=== PATIENT | male | born 1965 | race Caucasian/White ===

== ENCOUNTER 2017-07-26 08:52 | Emergency (ER) | payer BC, SELFPAY ==
[2017-07-26 08:54] VITALS: BP 179/120; PULSE 90; RESP 18; O2SAT 98; BMI 29.7
--- NOTE | 2017-07-26 09:03 | HMH.EDNEU ---
ED Disposition Clinical Impression: Neurological complaint Disposition: Home, Self-Care Condition on Discharge: Good Instructions: High Blood Pressure Additional Instructions: Continue your blood pressure medication as prescribed. Recheck blood pressure at your family doctor's office in 1-4 days. See her rig manager next available appointment also for checkup. Low-dose ibuprofen or Tylenol as needed for musculoskeletal pain of left arm. Referrals: Karen Malagon [Primary Care Provider] - - Critical Care Critical Care Time: No Attestation: On , the high probability of a clinically significant, sudden or life threatening deterioration of the following system(s) required my full and direct attention, intervention and personal management. The time I documented below is in addition to time spent performing reported procedures but includes the following listed in this critical care notation. Medical Decision Making Vital Signs: 07/26/17 08:54 Pulse Rate [Right Radial] 90 Respiratory Rate 18 Blood Pressure [Right Arm] 179/120 Blood Pressure Mean [Right Arm] 139 Blood Pressure Source [Right Arm] Automatic Cuff Blood Pressure Position [Right Arm] Supine 02 Sat by Pulse Oximetry 98 Oxygen Delivery Method Room Air afebrile - Lab Data Lab Results 07/26/17 09:15: WBC 5.2, RBC 5.15, Hgb 16.1, Hct 47.7, MCV 92.7, MCH 31.2, MCHC 33.7, RDW 12.8, Plt Count 223, MPV 7.6, Neut % (Auto) 66.8, Lymph % (Auto) 25.3, [place] % (Auto) 5.9, Eos % (Auto) 1.5, Baso % (Auto) 0.6, Neut # (Auto) 3.5, Lymph # (Auto) 1.3, [place] # (Auto) 0.3, Eos # (Auto) 0.1, Baso # (Auto) 0.0 07/26/17 09:15: Sodium 140, Potassium 3.9, Chloride 104, Carbon Dioxide 27, Anion Gap 12.9, BUN 11, Creatinine 1.18, Estimated Creat Clear 121, Estimated GFR 65, Est GFR ( Amer) 79, Glucose 171 H, Calcium 8.7, Total Bilirubin 0.3, AST 21, ALT 37, Alkaline Phosphatase 86, Total Creatine Kinase 142, CK-MB (CK-2) 0.7, CK-MB (CK-2) Rel Index 0.5, Troponin I < 0.02, Total Protein 6.8, Albumin 3.8, Globulin 3.0, Albumin/Globulin Ratio 1.3 Result diagrams: 07/26/17 09:15 07/26/17 09:15 Orders (Tests/Meds): ORDERS Category Date Time Status Chest XR 2 view (NOT portable) [XR chest 2V] Stat Exams 07/26/17 09:06 Taken - Radiology Data #1 Image(s): Chest Image Reviewed: Yes I reviewed the patient's radiology image Preliminary Findings: Normal/NAD, No Infiltrates Seen, Normal Heart Size - CT Data CT Scan: Head, C-Spine Time Received: 10:[address] Reviewed: Yes: I have reviewed the patient's CT results Preliminary Findings: Normal/NAD Findings Narrative: DJD, with some foraminal narrowing. Negative acute. CT negative acute as well. - ECG Data Tracing #1 Normal sinus rhythm rate of 81 normal axis and intervals. No ectopy. No hypertrophy. Positive wandering baseline noted. - Jovanni Inquiry Pt receiving controlled substance: No Medical Decision Making Narrative: Complaints of discharge. Systolic blood pressure is in the low 140s. Neurologically intact. Neuro HPI - General Stated Complaint: numbness - History of Present Illness HPI Narrative: Patient states that he was referred to the emergency department by his [facility], due to an episode that occurred 2 nights ago, and he experienced 30 seconds of right sided facial numbness and face felt heavy. He denies any headache or syncope. He also had a brief episode of chest pain radiating to the left upper extremity at that time. He has left shoulder and neck pain. 4 to history of chronic issues with his neck and back since serving in [place]. That he did not take his blood pressure medicine over the past 4 days as he was out. Refilled and took 1 dose this morning about 2 hours prior to arrival. Denies any known history of coronary artery disease but has known hypertension. States he dips. Has hyperlipidemia. Family history is negative for TIA or stroke, but
[2017-07-26 09:04] VITALS: BMI 33.7
--- NOTE | 2017-07-26 09:04 | CT_ITS ---
CT head/brain wo con HISTORY: Right arm and facial weakness ITS.REASON: r/o stroke ORDERING PHYSICIAN: Radha Huang MD PATIENT AGE: 52 years COMPARISON: None TECHNIQUE: Axial images obtained without contrast. Brain and bone windows reviewed. FINDINGS: No midline shift, mass effect, intracranial hemorrhage, hydrocephalus, or extra-axial fluid collection is evident. The calvarium has an unremarkable appearance. No mastoid effusion. No sinus air-fluid levels.. IMPRESSION: No acute intracranial finding. There is no evidence of intracranial hemorrhage, focal mass, or acute territorial infarction. A negative CT does not exclude an acute CVA. A follow-up head CT or MRI is recommended if neurological symptoms persist
--- NOTE | 2017-07-26 09:06 | XR_ITS ---
XR chest 2V HISTORY: ITS.REASON: period of lt side weakness 2 days ago ORDERING PHYSICIAN: Radha Huang MD PATIENT AGE: 52 years COMPARISON: 12/30/2012 FINDINGS: The cardiomediastinal silhouette and pulmonary vascularity are within normal limits. The lungs are clear without infiltrates, suspicious nodules, or pleural effusions. No acute bony abnormalities. IMPRESSION: Negative chest, no acute finding
--- NOTE | 2017-07-26 09:07 | ED_ITS ---
ED Disposition Clinical Impression: Neurological complaint Disposition: Home, Self-Care Condition on Discharge: Good Instructions: High Blood Pressure Additional Instructions: Continue your blood pressure medication as prescribed. Recheck blood pressure at your family doctor's office in 1-4 days. See her precision lens centerer and edger next available appointment also for checkup. Low-dose ibuprofen or Tylenol as needed for musculoskeletal pain of left arm. Referrals: Karen Malagon [Primary Care Provider] - - Critical Care Critical Care Time: No Attestation: On , the high probability of a clinically significant, sudden or life threatening deterioration of the following system(s) required my full and direct attention, intervention and personal management. The time I documented below is in addition to time spent performing reported procedures but includes the following listed in this critical care notation. Medical Decision Making Vital Signs: 07/26/17 08:54 Pulse Rate [Right Radial] 90 Respiratory Rate 18 Blood Pressure [Right Arm] 179/120 Blood Pressure Mean [Right Arm] 139 Blood Pressure Source [Right Arm] Automatic Cuff Blood Pressure Position [Right Arm] Supine 02 Sat by Pulse Oximetry 98 Oxygen Delivery Method Room Air afebrile - Lab Data Lab Results 07/26/17 09:15: WBC 5.2, RBC 5.15, Hgb 16.1, Hct 47.7, MCV 92.7, MCH 31.2, MCHC 33.7, RDW 12.8, Plt Count 223, MPV 7.6, Neut % (Auto) 66.8, Lymph % (Auto) 25.3 , [place] % (Auto) 5.9, Eos % (Auto) 1.5, Baso % (Auto) 0.6, Neut # (Auto) 3.5, Lymph # (Auto) 1.3, [place] # (Auto) 0.3, Eos # (Auto) 0.1, Baso # (Auto) 0.0 07/26/17 09:15: Sodium 140, Potassium 3.9, Chloride 104, Carbon Dioxide 27, Anion Gap 12.9, BUN 11, Creatinine 1.18, Estimated Creat Clear 121, Estimated GFR 65, Est GFR ( Amer) 79, Glucose 171 H, Calcium 8.7, Total Bilirubin 0.3, AST 21, ALT 37, Alkaline Phosphatase 86, Total Creatine Kinase 142, CK-MB ( CK-2) 0.7, CK-MB (CK-2) Rel Index 0.5, Troponin I < 0.02, Total Protein 6.8, Albumin 3.8, Globulin 3.0, Albumin/Globulin Ratio 1.3 Result diagrams: 07/26/17 09:15 07/26/17 09:15 Orders (Tests/Meds): ORDERS Category Date Time Status Chest XR 2 view (NOT portable) [XR chest 2V] Stat Exams 07/26/17 09:06 Taken - Radiology Data #1 Image(s): Chest Image Reviewed: Yes I reviewed the patient's radiology image Preliminary Findings: Normal/NAD, No Infiltrates Seen, Normal Heart Size - CT Data CT Scan: Head, C-Spine Time Received: 10:[address] Reviewed: Yes: I have reviewed the patient's CT results Preliminary Findings: Normal/NAD Findings Narrative: DJD, with some foraminal narrowing. Negative acute. CT negative acute as well. - ECG Data Tracing #1 Normal sinus rhythm rate of 81 normal axis and intervals. No ectopy. No hypertrophy. Positive wandering baseline noted. - Jovanni Inquiry Pt receiving controlled substance: No Medical Decision Making Narrative: Complaints of discharge. Systolic blood pressure is in the low 140s. Neurologically intact. Neuro HPI - General Stated Complaint: numbness - History of Present Illness HPI Narrative: Patient states that he was referred to the emergency department by his [facility] primary care [facility], due to an episode that occurred 2 nights ago, and he experienced 30 seconds of right sided facial numbness and face felt heavy. He denies any headache or syncope. He
[2017-07-26 09:26] LABS: Basophils % 0.6 % (0.1-2.0); Eosinophils # 0.1 K/mm3 (0.0-0.4); Eosinophils % 1.5 % (0.1-12.0); Hematocrit 47.7 % (42.0-52.0); Hemoglobin 16.1 g/dL (14.1-18.0); Lymphocytes # 1.3 K/mm3 (0.7-4.5); Lymphocytes % 25.3 K/mm3 (10-50); Mean Corpuscular HGB Conc 33.7 g/dL (31.8-35.4); Mean Corpuscular Hemoglobin 31.2 pg (27.0-31.2); Mean Corpuscular Volume 92.7 fl (80-94); Mean Platelet Volume 7.6 fl (7.4-10.4); Monocytes # 0.3 K/mm3 (0.1-1.0); Monocytes % 5.9 % (1.7-9.3); Neutrophils # 3.5 K/mm3 (1.8-7.8); Neutrophils % 66.8 % (37.0-80.0); Platelet Count 223 K/mm3 (142-424); Red Blood Count 5.15 M/mm3 (4.60-6.20); Red Cell Distribution Width 12.8 % (11.5-17.5); White Blood Count 5.2 K/mm3 (4.8-10.8)
--- NOTE | 2017-07-26 09:49 | CT_ITS ---
CT cervical spine wo con INDICATION: Cervical pain, Left-sided weakness, neck pain ITS.REASON: NECK PAIN ORDERING PHYSICIAN: Radha Huang MD PATIENT AGE: 52 years COMPARISON: None TECHNIQUE: Axial images are obtained without contrast. Sagittal and coronal reformatted images are reviewed as well. FINDINGS: There is normal alignment. No fracture or dislocation. C2-C3: Mild right foraminal narrowing from uncovertebral hypertrophy. C3-C4: Mild degenerative disc disease with mild uncovertebral hypertrophy and mild bilateral lateral recess and foraminal narrowing. There is narrowing of the canal at 10 mm. C4-C5: Mild degenerative disc disease with mild uncovertebral hypertrophy with mild to moderate left foraminal narrowing C5-C6: Mild degenerative disc disease. Left-sided foraminal narrowing from mild uncovertebral hypertrophy C6-7: Minimal endplate hypertrophic change with bulging disc. There is narrowing of the canal 10 mm. C7-T1: Unremarkable. There are scattered small lymph nodes in the neck. IMPRESSION: 1. No acute fracture or destructive process. 2. Cervical spondylosis with degenerative disc disease and facet and uncovertebral hypertrophy with foraminal narrowing and narrowing of the canal as described above. Please see above for detail description at each level
[2017-07-26 09:52] LABS: Anion Gap 12.9 mEq/L (5-15); CKMB Relative Index 0.5 U/L (0-4.0); Carbon Dioxide 27 mmol/L (21.0-32.0); Chloride 104 mmol/L (98-107); Creatine Kinase 142 U/L (39-308); Creatine Kinase MB 0.7 mg/ml (0.0-3.6); Potassium 3.9 mmoL/L (3.5-5.1); Sodium 140 mmol/L (136-145); Troponin I < 0.02 ng/ml (0.00-0.06)
[2017-07-26 09:53] LABS: Bilirubin,Total 0.3 mg/dL (0.2-1.0); Blood Urea Nitrogen 11 mg/dL (7-18); Calcium 8.7 mg/dL (8.5-10.1); Creatinine Clearance Estimated 121 mL/min (0-300); Creatinine,Serum 1.18 mg/dL (0.70-1.30); Estimated Glomerular Filt Rate 65 ml/min (>60); GFR (African American) 79 ML/MIN (>60); Glucose 171 mg/dL (74-106)
[2017-07-26 09:54] LABS: Alanine Aminotransferase 37 U/L (12-78); Albumin Level 3.8 gm/dL (3.4-5.0); Albumin/Globulin Ratio 1.3 (1.1-1.8); Alkaline Phosphatase 86 U/L (46-116); Aspartate Amino Transferase 21 U/L (15-37); Total Protein,Serum 6.8 gm/dL (6.4-8.2)
[2017-07-26 10:23] VITALS: BP 146/91; PULSE 60; RESP 16; O2SAT 100
[2017-07-26 11:25] VITALS: BP 160/99; PULSE 78; RESP 20; TEMP 36.9; O2SAT 98
== END 2017-07-26 11:27 | disposition home or self-care (01) ==
PROVIDERS: Emergency Provider Emergency Medicine; Family Provider Family Medicine; PCP Family Medicine
DX: R07.89 Other chest pain (principal); M54.2 Cervicalgia; M25.512 Pain in left shoulder; E78.5 Hyperlipidemia, unspecified
CPT/HCPCS: 70450; 71046; 72125; 80053; 82550; 82553; 84484; 85025; 93005; 93041; 99284

== ENCOUNTER 2021-01-03 12:36 | Emergency (ER) | payer OTHER, SELFPAY ==
[2021-01-03] VITALS (12 sets, daily range): BP systolic 120–129; BP diastolic 72–85; PULSE 90–106; RESP 16–18; TEMP 37.2–37.3; O2SAT 93–98; BMI 30.3
--- NOTE | 2021-01-03 12:50 | HMH.EDGENADL ---
ED Disposition Clinical Impression: Diverticulitis Disposition: Home, Self-Care Condition on Discharge: Fair Instructions: DI for Diverticulitis Additional Instructions: Cipro and Flagyl as prescribed. Percocet and ibuprofen for pain. Follow-up with your primary care doctor within 4-5 days. Call for appointment. Return to the emergency department if worsening pain, fever greater than 100.5 degrees, persistent vomiting. Additional instructions for CONTROLLED SUBSTANCES: You have been prescribed a medication that is a controlled substance. Controlled substances include pain medications known as opiates and sedative nerve medications known as benzodiazepines. Tramadol, fioricet, and gabapentin are also controlled substances. Some common opiates include: Codeine (such as Tylenol #3) Hydrocodone (Vicodin, Lortab, Lorcet, [place]) Oxycodone (Percocet, Percodan, Oxycodone, Oxy IR) Some common benzodiazepines include: Diazepam (Valium) Lorazepam (Ativan) Alprazolam (Xanax) Clonazepam (Klonopin) Oxazepam (Serax) All of these controlled substances are highly addictive and frequently abused. Misuse can and frequently does lead to addiction as well as overdose and . Medication should be stored in a locked cabinet or other secure storage unit. Do not store the medication in a motor vehicle. Short term supplies, 3 days or less, are prescribed because of the highly addictive nature of the medication. Any of the controlled substance medication NOT taken should be disposed of properly and NOT SAVED. The recommended method of disposing of unused medications is: Place the medicines in a sealable plastic bag. If the medicine is a solid, crush it or add water to dissolve it. Add something undesirable (cat litter, coffee grounds, etc.) Dispose of sealed bag in household trash Do not flush or pour unused medicines down a sink or drain. Controlled substances should not be shared, given away or sold. Because of the addictive nature and frequent abuse, these medications are sometimes stolen. These medications should be kept in a safe place where they cannot be stolen. Do not keep them in your car or purse. Lost or stolen prescriptions for controlled substances WILL NOT BE REFILLED in this emergency department, regardless of whether a police report was filed. Prescriptions: Oxycodone HCl/Acetaminophen [Percocet 5/325mg tablet] 1 tab PO Q6HP PRN #10 tab PRN Reason: Moderate To Severe Pain Transmission Status: Sent to [facility] Ibuprofen [Ibuprofen 800mg Tablet] 800 mg PO Q8HP PRN #15 tab PRN Reason: Moderate Pain Transmission Status: Sent to [facility] Ciprofloxacin HCl [Cipro 500mg Tab] 500 mg PO BID #20 tab Transmission Status: Sent to [facility] [place] [Flagyl] 500 mg PO TID #30 tab Transmission Status: Sent to [facility] Referrals: Provider,Referral, MD [Primary Care Provider] - - Critical Care Critical Care Time: No Attestation: On , the high probability of a clinically significant, sudden or life threatening deterioration of the following system(s) required my full and direct attention, intervention and personal management. The time I documented below is in addition to time spent performing reported procedures but includes the following listed in this critical care notation. Medical Decision Making - Jovanni Inquiry Pt receiving controlled substance: Yes Jovanni was queried for this patient: Yes Risks and benefits of using a controlled substance: were discussed with pt by me Vital Signs: 01/03/21 12:45 01/03/21 13:30 01/03/21 13:45 Temperature 99.1 F Temperature Source Oral Pulse Rate 97 H 96 H Pulse Rate [Right] 106 H Respiratory Rate 18 Blood Pressure Blood Pressure [Right Arm] 129/85 Blood Pressure Mean Blood Pressure Mean [Right Arm] 99 02 Sat by Pulse Oximetry 98 97 94 L Oxygen Delivery Method Room Air
--- NOTE | 2021-01-03 13:02 | CT_ITS ---
PROCEDURE: CT ABDOMEN PELVIS W CON CLINICAL INDICATION: lower abdo pain Left lower quadrant pain COMPARISON: No exams were available for comparison TECHNIQUE: IV Contrast: 75ML Isovue 370 Oral Contrast None Axial images obtained with sagittal and coronal reformats. All CT scans at the facility use one or more dose reduction, viz: automated exposure control, ma/kV adjustment per patient size (including targeted exams where dose is matched to indication, i.e. head), or iterative reconstruction technique. FINDINGS: LOWER THORAX: Minimal atelectatic or scarring noted in the lung bases. Coronary artery calcifications are present. ABDOMEN & PELVIS: The liver, spleen, adrenal glands, pancreas, and kidneys have an unremarkable appearance. No renal or ureteral calculi. No hydronephrosis. There is given history of appendectomy. No intestinal obstruction or free air. There is a small umbilical hernia containing fat. There is colonic diverticulosis. There is focal thickening of the colon in the left lower quadrant at the junction of the descending and sigmoid colon. A hyperdense diverticulum is noted at this region. There is stranding of the pericolic fat. These findings are consistent with acute diverticulitis. No abscess or extra colic air is evident. There is mild thickening of the left lateral conal fascia in the left pericolic gutter inferiorly. There is a small amount fluid in the pelvis. The bowel gas pattern is nonspecific with nondistended fluid-filled loops of large and small bowel with a few air-fluid levels. Sclerotic focus is present in the right proximal femur and may be due to a bone island. Small sclerotic focus of the right ilium which could also be due due to a bone island. Degenerative changes lumbar spine. IMPRESSION: Acute diverticulitis in the left lower quadrant at the junction of the descending and sigmoid colon. No evidence of perforation or abscess. Dictated by: Melvin Zayas MD 01/03/2021 13:58 Melvin Zayas MD in [place] 01/03/2021 13:58
[2021-01-03 13:06] LABS: Appearance,Urine CLEAR (Clear); Bilirubin,Urine Negative (Negative); Blood, Urine TRACE-I (Negative); Color,Urine YELLOW (Yellow); Glucose,Urine (UA) Negative (Negative); Ketones,Urine Negative (Negative); Leukocyte Esterase,Urine Negative (Negative); Microscopic, Urine URINE MICROSCOPIC (MICROSCOPIC); Nitrate,Urine Negative (Negative); Protein,Urine 1+ (Negative)
--- NOTE | 2021-01-03 13:15 | PC.NURSE ---
Pt to CT scanner via wheelchair at this time.
[2021-01-03 13:21] LABS: Basophils # 0.1 K/mm3 (0-0.2); Basophils % 0.3 % (0.1-2.0); Eosinophils # 0.2 K/mm3 (0.0-0.4); Eosinophils % 1.2 % (0.1-12.0); Hematocrit 43.4 % (42.0-52.0); Hemoglobin 15.4 g/dL (14.1-18.0); Lymphocytes # 1.5 K/mm3 (0.7-4.5); Lymphocytes % 8.4 % (10-50); Mean Corpuscular HGB Conc 35.4 g/dL (31.8-35.4); Mean Corpuscular Hemoglobin 32.4 pg (27.0-31.2); Mean Corpuscular Volume 91.4 fl (80-94); Monocytes % 5.5 % (1.7-9.3); Neutrophils # 15.2 K/mm3 (1.8-7.8); Neutrophils % 84.6 % (37.0-80.0); Platelet Count 218 K/mm3 (142-424); Red Blood Count 4.75 M/mm3 (4.60-6.20); Red Cell Distribution Width 13.1 % (11.5-17.5)
[2021-01-03 13:23] LABS: Chloride 100 mmol/L (98-107); Sodium 137 mmol/L (136-145)
[2021-01-03 13:26] LABS: Alanine Aminotransferase 19 U/L (12-78); Alkaline Phosphatase 78 U/L (38-126); Aspartate Amino Transferase 27 U/L (17-59); Bilirubin,Total 1.6 mg/dl (0.2-1.3); Blood Urea Nitrogen 17 mg/dl (9-20); Carbon Dioxide 28 mmol/L (22.0-30.0); Creatinine Clearance Estimated 113 mL/min (50-200); Estimated Glomerular Filt Rate 70 ml/min (>60); GFR (African American) 84 ML/MIN (>60); Lipase 35 U/L (23-300)
[2021-01-03 13:27] LABS: Albumin Level 4.6 g/dl (3.5-5.0); Albumin/Globulin Ratio 1.5 (1.1-1.8); Calcium 9.2 mg/dl (8.4-10.2); Globulin 3.1 g/dL (1.3-3.2); Glucose 128 mg/dl (74-100); Total Protein,Serum 7.7 g/dl (6.3-8.2)
[2021-01-03 13:28] LABS: MANUAL DIFFERENTIAL MANUAL DIFFERENTIAL (MANUAL DIFF)
[2021-01-03 14:07] LABS: Lymphocytes % 10 % (10-50); Monocytes % 4 % (2-9); Neutrophils % 86 % (42-76); Total Cells Counted 100
[2021-01-03 14:08] LABS: Platelet Estimate Normal; RBC Morphology Normal
--- NOTE | 2021-01-03 14:16 | PC.NURSE ---
Patient up for discharge but will receive IV antibiotics prior to discharge
== END 2021-01-03 16:06 | disposition home or self-care (01) ==
PROVIDERS: Emergency Provider Emergency Medicine
DX: K57.92 Diverticulitis of intestine, part unspecified, without perforation or abscess without bleeding (principal)
CPT/HCPCS: 74177; 80053; 81001; 83690; 85007; 85025; 96365; 96366; 99283; J1956; Q9967

== ENCOUNTER → 2021-07-17 14:36 | Outpatient (CLI) | payer OTHER, SELFPAY | PROVIDERS: Visit Provider Nurse Practitioner | DX: Z20.822 Contact with and (suspected) exposure to COVID-19 (principal) | CPT/HCPCS: C9803; U0003; U0005 ==

== ENCOUNTER 2021-08-18 19:42 | Inpatient (IN) | payer OTHER, SELFPAY ==
[2021-08-18] VITALS (8 sets, daily range): BP systolic 103–168; BP diastolic 64–118; PULSE 59–105; RESP 15–18; TEMP 36.6–36.7; O2SAT 91–97; BMI 28.8; BMI 30.7
--- NOTE | 2021-08-18 | IR_ITS ---
APPROVED REPORT Patient Location: Emergent Machine Plug Shaper: SUZY Yap RT (R) PROCEDURES Left heart catheterization Left ventriculogram Selective coronary angiogram INDICATION Acute non-ST elevation myocardial infarction Informed consent was obtained prior to the procedure. COMPLICATIONS None Estimated Blood Loss: Less than 10 ML TECHNIQUE One percent lidocaine used to anesthetize the right anterior aspect of the wrist. The right radial artery was accessed via the Seldinger technique. A 6 [place] sheath was placed in the right radial artery. 2.5 mg of verapamil, 800 mcg of nitroglycerin, 1mg Lidocaine and 5000 U Heparin were given through the arterial sheath. The [place] catheter was also used to perform left heart catheterization, left ventriculogram and selective coronary angiogram. At the end of the procedure the sheath was removed good hemostasis was achieved using Traclet band, patient was transferred to the postop holding area in stable condition. ANGIOGRAPHIC RESULTS The left main artery Distal eccentric 70% stenosis The left anterior descending artery Proximal eccentric 90% stenosis with additional mid vessel 80% stenosis and a distal 50% stenosis. A large first diagonal artery has an ostial 50% followed by a 70 to 80% stenosis. The second diagonal artery is a small vessel and subtotally occluded proximally The circumflex artery Is probably codominant and gives rise to a large first obtuse marginal artery which has proximal long 70% stenoses. The true circumflex artery has a mid vessel 80% stenosis The right coronary artery Is dominant with a mid vessel concentric 70 to 80% stenosis. The posterior descending artery is proximally subtotally occluded with the distal vessel filling via [id number] collaterals The [place] ventriculogram reveals Normal 60% The left ventricular end-diastolic pressure 10 mmHg IMPRESSION Severe three-vessel coronary disease as described above Normal ejection fraction Normal left ventricular and SI pressure PLAN 1. Uptitrate beta-blockers to achieve target heart rate in the 60s or 70s. 2. Patient should be started on high intensity statins today 3. Patient has surgical disease and will be referred to [facility] for urgent transfer with planned CABG following clearance of Plavix 300 mg which was given in the emergency department 1 hour ago 4. Start heparin drip 5. I discussed the case with the surgeon at [facility] and plans are currently underway for transfer this evening or in the morning Electronically signed by : Duong Prince MD 08/18/2021 21:50:28
--- NOTE | 2021-08-18 19:40 | ECG_ITS ---
APPROVED REPORT Exam: Resting ECG HR:98 bpm ECG Measurements Heart Rate 98 AXES OK 192 P 57 QRSd 99 QRS 38 QT 350 T 73 QTc 405 Conclusion SINUS RHYTHM POSSIBLE LEFT ATRIAL ENLARGEMENT [-0.1mV P-WAVE IN V1/V2] NONSPECIFIC T-WAVE ABNORMALITY BORDERLINE ECG UNCONFIRMED REPORT Electronically signed by : Radhames Lee MD 08/19/2021 07:35:42
--- NOTE | 2021-08-18 19:44 | XR_ITS ---
PROCEDURE INFORMATION: Exam: XR Chest Exam date and time: 08/18/2021 7:44 PM Age: 56 years old Clinical indication: Pain; Chest pressure; Additional info: Cp TECHNIQUE: Imaging protocol: XR of the chest. Views: 2 views. COMPARISON: CR CXR2V XR chest 2V 07/26/2017 10:12 AM FINDINGS: Lungs: Unremarkable. No consolidation. Pleural spaces: Unremarkable. No pleural effusion. No pneumothorax. Heart/Mediastinum: Unremarkable. No cardiomegaly. Bones/joints: Unremarkable. IMPRESSION: No acute findings.
[2021-08-18 19:58] LABS: Basophils # 0.2 K/mm3 (0-0.2); Basophils % 2.5 % (0.1-2.0); Eosinophils # 0.1 K/mm3 (0.0-0.4); Eosinophils % 1.5 % (0.1-12.0); Hematocrit 48.9 % (42.0-52.0); Hemoglobin 16.3 g/dL (14.1-18.0); Lymphocytes % 26.4 % (10-50); Mean Corpuscular HGB Conc 33.4 g/dL (31.8-35.4); Mean Corpuscular Hemoglobin 31.7 pg (27.0-31.2); Mean Platelet Volume 8.1 fl (7.4-10.4); Monocytes # 0.5 K/mm3 (0.1-1.0); Monocytes % 6.8 % (1.7-9.3); Neutrophils # 4.7 K/mm3 (1.8-7.8); Neutrophils % 62.8 % (37.0-80.0); Platelet Count 243 K/mm3 (142-424); Red Blood Count 5.15 M/mm3 (4.60-6.20); Red Cell Distribution Width 13.5 % (11.5-17.5); White Blood Count 7.4 K/mm3 (4.8-10.8)
[2021-08-18 20:11] LABS: Anion Gap 12.1 mEq/L (5-15); Blood Urea Nitrogen 17 mg/dl (9-20); Calcium 9.1 mg/dl (8.4-10.2); Carbon Dioxide 28 mmol/L (22.0-30.0); Chloride 104 mmol/L (98-107); Creatinine Clearance Estimated 117 mL/min (50-200); Estimated Glomerular Filt Rate 78 ml/min (>60); GFR (African American) 94 ML/MIN (>60); Glucose 161 mg/dl (74-100); Potassium 4.1 mmoL/L (3.5-5.1); Sodium 140 mmol/L (136-145)
--- NOTE | 2021-08-18 20:11 | HMH.EDCP ---
ED Disposition Clinical Impression: Unstable angina pectoris, Non-ST elevated myocardial infarction (non-STEMI) Disposition: Admitted As Inpatient Condition on Discharge: Serious - Critical Care Critical Care Time: No Attestation: On 08/18/21, the high probability of a clinically significant, sudden or life threatening deterioration of the following system(s) required my full and direct attention, intervention and personal management. The time I documented below is in addition to time spent performing reported procedures but includes the following listed in this critical care notation. Medical Decision Making - Medical Records Medical records reviewed: Yes: I reviewed the patient's medical records. - Jovanni Inquiry Pt receiving controlled substance: No Vital Signs: 08/18/21 19:43 Temperature 98.1 F Temperature Source Oral Pulse Rate [Left] 102 H Respiratory Rate 18 Blood Pressure [Right Arm] 168/110 H Blood Pressure Mean [Right Arm] 129 02 Sat by Pulse Oximetry 97 Oxygen Delivery Method Room Air - Lab Data Lab results reviewed: Yes: I reviewed the patient's lab results. Lab Results 08/18/21 19:43: WBC 7.4, RBC 5.15, Hgb 16.3, Hct 48.9, MCV 95.0 H, MCH 31.7 H, MCHC 33.4, RDW 13.5, Plt Count 243, MPV 8.1, Neut % (Auto) 62.8, Lymph % (Auto) 26.4, [place] % (Auto) 6.8, Eos % (Auto) 1.5, Baso % (Auto) 2.5 H, Neut # (Auto) 4.7, Lymph # (Auto) 2.0, [place] # (Auto) 0.5, Eos # (Auto) 0.1, Baso # (Auto) 0.2 08/18/21 19:43: Sodium 140, Potassium 4.1, Chloride 104, Carbon Dioxide 28, Anion Gap 12.1, BUN 17, Creatinine 1.00, Estimated Creat Clear 117, Estimated GFR 78, Est GFR ( Amer) 94, Glucose 161 H, Calcium 9.1, Troponin I 0.18 H 08/18/21 20:45: Urine Color Yellow, Urine Appearance Clear, Urine pH 6.5, Ur Specific [place] 1.015, Urine Protein Trace, Urine Glucose (UA) 1+, Urine Ketones Negative, Urine Blood Negative, Urine Nitrate Negative, Urine Bilirubin Negative, Urine Urobilinogen 0.2, Ur Leukocyte Esterase Negative Result diagrams: 08/18/21 19:43 08/18/21 19:43 Orders (Tests/Meds): ED MEDICATIONS Generic Name Dose Route Start Last Admin Trade Name Freq PRN Reason Stop Dose Admin Diphenhydramine HCl 50 mg 08/18/21 20:51 Diphenhydramine 50mg/Ml Vial IV 08/18/21 20:52 ONCE ONE Fentanyl Citrate 25 mcg 08/18/21 20:51 Fentanyl 100mcg/2ml Vial IV 08/19/21 20:51 Q3MINP PRN Moderate to Severe Pain Fentanyl Citrate 50 mcg 08/18/21 20:51 Fentanyl 100mcg/2ml Vial IV 08/19/21 20:51 Q3MINP PRN Moderate to Severe Pain Fentanyl Citrate 25 mcg 08/18/21 20:51 Fentanyl 250mcg/5ml Vial IV 08/19/21 20:51 Q3MINP PRN Moderate to Severe Pain Fentanyl Citrate 50 mcg 08/18/21 20:51 Fentanyl 250mcg/5ml Vial IV 08/19/21 20:51 Q3MINP PRN Moderate to Severe Pain Flumazenil 0.2 mg 08/18/21 20:51 Flumazenil 0.1mg/Ml 5ml Vial IV 08/18/21 23:00 NEEDED PRN Sedation Heparin Sodium (Porcine) 10,000 unit 08/18/21 20:51 Heparin 1,000 Units/Ml 10ml Vial (Log Rider) IV 08/19/21 00:51 NEEDED PRN Emergency Box Saw Handle Assembler Heparin Sodium/Sodium Chloride 3,000 unit 08/18/21 20:51 Heparin 1,000 Units/500ml Ns (Log Rider) IV 08/18/21 20:52 ONCE ONE Sodium Chloride 1,000 mls @ 999 mls/hr 08/18/21 20:00 08/18/21 19:58 Sod Chlor 0.9% 1000ml Bag IV 08/18/21 21:00 999 mls/hr .Q1H1M LANCE Administration Sodium Chloride 1,000 mls @ 25 mls/hr 08/18/21 21:00 Sod Chlor 0.9% 1000ml Bag IV 08/19/21 20:51 .Q25H LANCE Lidocaine HCl 20 ml 08/18/21 20:51 Lidocaine 1% 10ml Mdv IJ 08/18/21 20:52 ONCE ONE Lidocaine HCl 20 ml 08/18/21 20:51 Lidocaine 1% 5ml Pf Vial IJ 08/18/21 20:52 ONCE ONE Midazolam HCl 1 mg 08/18/21 20:51 Midazolam 2mg/2ml Vial IV 08/19/21 20:51 Q3MINP PRN Sedation Midazolam HCl 1 mg 08/18/21 20:51 Midazolam Hcl 1mg/1ml 5ml Vial IV 08/19/21 20:51
[2021-08-18 20:23] LABS: Troponin I 0.18 ng/ml (0.00-0.034)
--- NOTE | 2021-08-18 20:27 | PC.NURSE ---
ED Doctor on phone with Dr. Prince
--- NOTE | 2021-08-18 20:34 | PC.NURSE ---
material handling warehouse supervisor notified of need for labour market economist to be called in
[2021-08-18 20:55] LABS: Appearance,Urine CLEAR (Clear); Bilirubin,Urine Negative (Negative); Blood, Urine Negative (Negative); Color,Urine YELLOW (Yellow); Glucose,Urine (UA) 1+ (Negative); Ketones,Urine Negative (Negative); Leukocyte Esterase,Urine Negative (Negative); Microscopic, Urine URINE MICROSCOPIC (MICROSCOPIC); Nitrate,Urine Negative (Negative); PH,Urine 6.5 (5.0-8.5); Protein,Urine TRACE (Negative); Specific Gravity, Urine 1.015 (1.005-1.030); Urobilinogen,Urine 0.2 EU/dl (0.2)
[2021-08-18 20:58] LABS: Squamous Epithelial Cell,Urine Occasional #/hpf (0-5)
--- NOTE | 2021-08-18 20:58 | PC.NURSE ---
Pt placed in gown. Jewelry removed. Groins and wrists trimmed. Pt voided. Pt placed on zolle monitor pads. Awaiting arrival of Cath team.
--- NOTE | 2021-08-18 21:04 | PC.NURSE ---
Pt being transported to labor commissioner at this time with JULIANA Guerrero
[2021-08-18 21:19] LABS: Cholesterol 288 mg/dl (140-200); HDL Cholesterol 41 mg/dl (40-60); Triglycerides 313 mg/dl (30-150); VLDL Cholesterol 63 mg/dL (0-40)
[2021-08-18 21:30] LABS: Coronavirus 19, PCR Not Detected (NotDetected); Influenza A, PCR Not Detected (NotDetected); Influenza B, PCR Not Detected (NotDetected)
[2021-08-18 21:30] LABS: Direct LDL Cholesterol 201.91 mg/dL (100-129)
--- NOTE | 2021-08-18 22:08 | PC.NURSE ---
PT ARRIVED TO FLOOR VIA STRETCHER FROM [facility] TRANSFER CAR OPERATOR W/STAFF @ [id number]
[2021-08-19] VITALS: PULSE 50
--- NOTE | 2021-08-19 | HMH.HPDC ---
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 to night it has radiaited to his shoulder and jaw and is constant [facility] History I have reviewed the patient's past medical history: Yes Medical History: Reports:: Hyperlipidemia, Hypertension Denies:: Cancer, Diabetes Mellitus Type 1, Diabetes Mellitus Type 2, MRSA *Have you ever received a pneumonia vaccine?: No *Have you received a flu vaccine this season?: No - *Social History Smoking Status: Former smoker Tobacco Type: smokeless tobacco Alcohol Intake: current Alcohol Intake Frequency:: holidays/special occasions only *Occupational Status:: employed *Travel in the last 8 weeks: Inside the [facility] Family Hx:: Cancer, Hyperlipidemia, Hypertension, Kidney Disease, Thyroid Disorder Review of Systems - Review of Systems Review of systems:: pertinent systems reviewed and negative unless documented below - Constitutional Denies fever(s) - Eyes Denies discharge - ENT Denies facial pain - *Cardiovascular Reports chest pain, Reports radiating jaw, neck or arm pain, Denies shortness of breath - *Respiratory Denies cough - *Gastrointestinal Denies abdominal pain - *Genitourinary Denies blood in urine - *Musculoskeletal Denies joint pain - Integumentary/Breasts Denies rash - *Neurologic Denies localized weakness, Denies seizure-like activity - Psychiatric Denies depression Exam Vital signs and Labs for Last 24 Hours: Temp Pulse Resp BP Pulse Ox 98.1 F 105 H 18 157/118 H 97 08/18/21 21:07 08/18/21 21:07 08/18/21 21:07 08/18/21 21:07 08/18/21 19:43 Laboratory Results - last 24 hr 08/18/21 19:43: WBC 7.4, RBC 5.15, Hgb 16.3, Hct 48.9, MCV 95.0 H, MCH 31.7 H, MCHC 33.4, RDW 13.5, Plt Count 243, MPV 8.1, Neut % (Auto) 62.8, Lymph % (Auto) 26.4, [place] % (Auto) 6.8, Eos % (Auto) 1.5, Baso % (Auto) 2.5 H, Neut # (Auto) 4.7, Lymph # (Auto) 2.0, [place] # (Auto) 0.5, Eos # (Auto) 0.1, Baso # (Auto) 0.2 08/18/21 19:43: Sodium 140, Potassium 4.1, Chloride 104, Carbon Dioxide 28, Anion Gap 12.1, BUN 17, Creatinine 1.00, Estimated Creat Clear 117, Estimated GFR 78, Est GFR ( Amer) 94, Glucose 161 H, Calcium 9.1, Troponin I 0.18 H 08/18/21 19:43: Triglycerides 313 H, Cholesterol 288 H, LDL Cholesterol Direct 201.91 H, VLDL Cholesterol 63 H, HDL Cholesterol 41, Cholesterol/HDL Ratio 7.0 H 08/18/21 20:45: Urine Color Yellow, Urine Appearance Clear, Urine pH 6.5, Ur Specific [place] 1.015, Urine Protein Trace, Urine Glucose (UA) 1+, Urine Ketones Negative, Urine Blood Negative, Urine Nitrate Negative, Urine Bilirubin Negative, Urine Urobilinogen 0.2, Ur Leukocyte Esterase Negative, Ur Squamous Epith Cells Occasional 08/18/21 21:25: SARS-CoV-2 (PCR) Not detected, Influenza A Untype (PCR) Not detected, Influenza Type B (PCR) Not detected I & O for Last 24 hours: Intake & Output 08/16/21 08/17/21 08/18/21 08/19/21 11:59 11:59 11:59 11:59 Weight 218 lb - Constitutional no acute distress Comments: overweight - *Routine HEENT Exam Head: Present: normocephalic Eye: Present: EOMI, PERRL ENT: Present: mucous membranes dry - *Routine Neck Ex
[2021-08-19 00:15] VITALS: BP 123/76; PULSE 65; RESP 18; TEMP 36.8; O2SAT 93
[2021-08-19 00:45] VITALS: BP 116/83; PULSE 74; RESP 17; O2SAT 91
--- NOTE | 2021-08-19 00:54 | PC.NURSE ---
Report given to [facility].
[2021-08-19 01:30] VITALS: BP 124/79; PULSE 64; RESP 16; TEMP 36.8; O2SAT 92
--- NOTE | 2021-08-19 01:35 | PC.NURSE ---
[facility] here to take pt to [facility].
--- NOTE | 2021-08-19 01:41 | PC.NURSE ---
PT WAS TRANSFERRED VIA STRETCHER PER EMS TO DIFFERENT FACILITY @ [id number]
--- NOTE | 2021-08-19 01:42 | PC.NURSE ---
Pt left with [facility]'s ambulance.
== END 2021-08-19 01:41 | disposition short-term general hospital (02) | DRG 282 ==
LOC: ER 20:37 → CATHLAB 20:50 → 2ND 21:04
PROVIDERS: Internal Medicine; Admitting Provider Emergency Medicine; Emergency Provider Emergency Medicine; Visit Provider Family Medicine
PROC: 4A023N7 Measurement of Cardiac Sampling and Pressure, Left Heart, Percutaneous Approach (ICD-10-PCS; principal; 2021-08-18 20:50)
DX: I21.4 Non-ST elevation (NSTEMI) myocardial infarction (principal); I25.110 Atherosclerotic heart disease of native coronary artery with unstable angina pectoris; I10 Essential (primary) hypertension; F17.290 Nicotine dependence, other tobacco product, uncomplicated
CPT/HCPCS: 71046; 80048; 80061; 81001; 84484; 85025; 93005; 93458; 96365; 99152; 99281; C1725; C1760; C1769; C9803; G0378; J1644; Q9967; U0003; U0005

== ENCOUNTER → 2021-11-22 09:08 | Outpatient (CLI) | payer OTHER, SELFPAY | PROVIDERS: Visit Provider Urology | DX: Z01.812 Encounter for preprocedural laboratory examination (principal); Z11.52 Encounter for screening for COVID-19; R39.198 Other difficulties with micturition | CPT/HCPCS: C9803; U0003; U0005 ==

== ENCOUNTER 2021-11-24 08:03 | Day surgery (SDC) | payer OTHER, SELFPAY ==
[2021-11-24] VITALS (10 sets, daily range): BP systolic 107–160; BP diastolic 68–92; PULSE 47–62; RESP 12–18; TEMP 36.6–36.9; O2SAT 92–99; BMI 28.2
--- NOTE | 2021-11-24 08:29 | P.PN_ITS ---
[facility] Anesthesia Checklist - Patient Identification Patient Identification: Arm Band - Structural Data Admitted From: Home Planned Operative Procedure/s: Urethral dilation Consent for Planned Operative Procedure(s) Verified: Yes - NPO Status Verified Time NPO: 00:00 - Additional verifications Anesthesia Reactions: No Hx Blood Transfusions: No Blood Transfusion Reaction: No - Airway Assessment C-Spine Mobility Assessed: Yes TMJ Mobility Assessed: Yes Dentition: Poor Dentition - Neurological Assessment Level of Consciousness: Awake Hx Seizures: No Numbness or tingling in extremities: No - Anesthesia Plan Anesthesia Risk discussed: Yes Anesthesia Plan: Verified ASA Class: III Anesthesia Type: MAC [facility] History I have reviewed the patient's past medical history: Yes Medical History: Reports:: Coronary Artery Disease, Hyperlipidemia, Hypertension, Myocardial Infarction Denies:: Cancer, Diabetes Mellitus Type 1, Diabetes Mellitus Type 2, Internal Pacemaker, MRSA, Seizures *Have you ever received a pneumonia vaccine?: No *Have you received a flu vaccine this season?: No Other Medical History: Denies: Blood Transfusion Reaction Anesthesia experience/problems:: None Other Surgeries: Yes: Appendectomy, CABG (08/2021), Cardiac Catheterization, Cardiac Surgery. No: Pacemaker Amputation: No Fractures: No - *Social History Last grade of school completed: High school graduate Smoking Status: Never smoker Tobacco Type: smokeless tobacco Alcohol Intake: never Alcohol Intake Frequency:: holidays/special occasions only Substance Use Type: denies use *Occupational Status:: employed *Travel in the last 8 weeks: Inside the [facility] Family Hx:: Cancer, Hyperlipidemia, Hypertension, Kidney Disease, Thyroid Disorder
--- NOTE | 2021-11-24 09:23 | P.PN_ITS ---
[facility] Anesthesia Record Part I Intake, IV Amount: 1,000 Estimated blood loss (mL): 0 Urine output (mL): 0 Blood Pressure: 107/68 SaO2: 92 Pulse Rate: 59 Respiratory Rate: 12 Temperature: 98 F Patient is:: Awake, Stable Stable to PACU at:: 09:20
--- NOTE | 2021-11-24 10:33 | P.OP_ITS ---
Date of procedure: 11/24/21 Pre-op Diagnosis:: Urinary slowing Post-op Diagnosis:: Distal urethral stricture Procedure performed:: Dilation of distal urethral stricture and cystoscopy with Rodriguez catheter placement Surgeon:: Antonio Patten MD [employer] OPERATOR:: Kiran Lema Anesthesia: LMA Estimated blood loss (mL): 1 Clinical Note:: 56-year-old white male with history of urinary slowing since heart surgery in August. Reportedly there was difficulty placing his Rodriguez catheter at the time of his heart surgery and urology was consulted to place a Rodriguez. He denies any problems prior to that procedure and states that his urine stream is quite slow now and it takes 10 minutes to feel like he empties his bladder. Operative findings:: Patient with a distal urethral stricture. No other abnormalities are noted with cystoscopy. Prostate was not enlarged and the bladder was within normal limits. Operative note:: Patient taken to the operating room after informed consent was obtained. He was placed on the operating table in the supine position and general anesthesia administered. Preoperative antibiotics given. He was then placed into the dorsal lithotomy position and prepped and draped in the standard surgical fashion. The 22 Martiniquais cystoscope was attempted to be passed into the urethra but there was resistance at the fossa navicularis. A 22 Martiniquais Belmont dilator would not pass through the narrowing either and a 16 Martiniquais Timbo was able to cannulate the urethral narrowing. The urethra was then dilated with the 18, 20, 22, 24 and 26 Martiniquais Belmont sounds. Cystoscopy was then performed showing some area scarring at the distal urethra where the stricture was however no other strictures were noted in the course of the urethra. The prostate was nonobstructing in the bladder showed no evidence of obstructive changes. Scope removed and there was noted to be some bleeding from the urethra the point of the stricture. An 18 Martiniquais Rodriguez catheter was placed for tamponade purposes. Patient tolerated the procedure well no complications. Condition: stable Disposition: same day Specimens:: None Complications:: None
[2021-11-27 13:01] VITALS: BP 131/74; PULSE 62; TEMP 36.9
--- NOTE | 2021-11-27 13:01 | HMH.ANESII ---
[facility] Anesthesia Record Part II Discharge Time: 09:50 Destination: [facility] PACU nurse assessment reviewed?: Yes Patient Condition:: Good Anesthesia Complications:: None Swallowing reflex intact?: Yes Cyanosis?: No (131/74) Blood Pressure: 131/74 Pulse Rate: 62 Temperature: 98.4 F Mental Status: Alert & Oriented Pain level:: 0 Nausea and/or vomitting:: None Intake, IV Amount: 500
== END 2021-11-24 10:55 | disposition home or self-care (01) ==
LOC: OR 08:03
PROVIDERS: PCP Emergency Medicine; Visit Provider Urology
PROC: 0TJB8ZZ Inspection of Bladder, Via Natural or Artificial Opening Endoscopic (ICD-10-PCS; CPT 52000; principal; 2021-11-24 09:00)
DX: R39.198 Other difficulties with micturition (principal); N35.919 Unspecified urethral stricture, male, unspecified site; I25.10 Atherosclerotic heart disease of native coronary artery without angina pectoris; E78.5 Hyperlipidemia, unspecified; I10 Essential (primary) hypertension; I25.2 Old myocardial infarction; Z95.1 Presence of aortocoronary bypass graft; Z90.49 Acquired absence of other specified parts of digestive tract; Z80.9 Family history of malignant neoplasm, unspecified; Z84.1 Family history of disorders of kidney and ureter; Z82.49 Family history of ischemic heart disease and other diseases of the circulatory system; Z83.49 Family history of other endocrine, nutritional and metabolic diseases
CPT/HCPCS: 52281; 96374; J2405

== ENCOUNTER 2021-12-22 13:16 | Emergency (ER) | payer OTHER, SELFPAY ==
[2021-12-22 13:38] VITALS: BP 152/99; PULSE 79; RESP 17; TEMP 37.1; O2SAT 99; BMI 27.0
--- NOTE | 2021-12-22 13:44 | HMH.EDUTC ---
[facility] [place] Clinical Impression: Viral syndrome Disposition: Home, Self-Care Condition on Discharge: Good Instructions: DI for Viral Syndrome Additional Instructions: Drink plenty of fluids. Take tylenol or ibuprofen for pain or fever. Take the medications as directed. Follow up with your regular doctor. GO TO THE ER FOR ANY WORSENING SYMPTOMS Prescriptions: Benzonatate [Benzonatate 100mg cap] 100 mg PO TIDP PRN #30 cap PRN Reason: Cough Transmission Status: Received by [facility] methylPREDNISolone [Medrol] 4 mg PO DIRECTED 6 Days #21 packet Transmission Status: Received by [facility] Azithromycin [Z-Jw 250mg Tab*] 250 mg PO UD DOSE PK #6 tab Transmission Status: Received by [facility] Referrals: Ayad Almonte MD [Primary Care Provider] - Time of Disposition: 14:10 Medical Decision Making - Medical Records Medical records reviewed: No: I reviewed the patient's medical records. - Jovanni Inquiry Pt receiving controlled substance: No Vital Signs: 12/22/21 13:38 12/22/21 14:15 Temperature 98.8 F 98.8 F Temperature Source Oral Pulse Rate 79 Pulse Rate [Left Radial] 79 Respiratory Rate 17 17 Blood Pressure 152/99 H Blood Pressure [Right Arm] 152/99 H Blood Pressure Mean [Right Arm] 116 02 Sat by Pulse Oximetry 99 - Lab Data Lab results reviewed: Yes: I reviewed the patient's lab results. Lab Results 12/22/21 13:31: Group A Strep Rapid Negative 12/22/21 13:31: Influenza Type A Ag Negative, Influenza Type B Ag Negative 12/22/21 14:02: Chlamy pneumoniae PCR Not detected, Adenovirus (PCR) Not detected, B. pertussis DNA (PCR) Not detected, Coronavirus OC43 (PCR) Not detected, Coronavirus HKU1 (PCR) Not detected, Coronavirus 229E (PCR) Not detected, SARS-CoV-2 (PCR) Detected A, Coronavirus NL63 (PCR) Not detected, Human Metapneumovir PCR Not detected, Influenza A (H1) PCR Not detected, Influ A (H1N1/09) PCR Not detected, Influenza A (H3) PCR Not detected, Influenza Type A (PCR) Not detected, Influenza Type B (PCR) Not detected, M. pneumoniae (PCR) Not detected, Parainfluenza 1 (PCR) Not detected, Parainfluenza 2 (PCR) Not detected, Parainfluenza 3 (PCR) Not detected, Parainfluenza 4 (PCR) Not detected, RSV (PCR) Not detected, Entero/Rhino (PCR) Not detected [facility] [place] - General Stated complaint: congestion, cough Time Seen by Provider: 12/22/21 13:45 - History of Present Illness Provider Complaint: He c/o chest and sinus congestion for the past 2 days. - Related Data Home Medications Medication Instructions Recorded Confirmed Aspirin [Aspirin 81mg EC Tab] 81 mg PO DAILY 11/21/21 11/27/21 Losartan Potassium [Cozaar 100mg 100 mg PO DAILY 11/21/21 11/27/21 Tablets] Previous Rx's Medication Instructions Recorded atorvastatin 80 mg tablet See Rx Instructions .ROUTE 12/06/21 .COMPLEX #90 tablet metoprolol tartrate 25 mg tablet See Rx Instructions .ROUTE 12/06/21 .COMPLEX #180 tablet Azithromycin [Z-Jw 250mg Tab*] 250 mg PO UD DOSE PK #6 tab 12/22/21 Benzonatate [Benzonatate 100mg 100 mg PO TIDP PRN #30 cap 12/22/21 cap] methylPREDNISolone [Medrol] 4 mg PO DIRECTED 6 Days #21 12/22/21 packet Allergies Allergy/AdvReac Type Severity Reaction Status Date / Time No Known Allergies Allergy Verified 12/22/21 13:45 [facility] History - Hepatitis A Screen Attestation statement:: This patient has been screened for Hepatitis A risk factors. I have reviewed the patient's past medical history: Yes Medical History: Reports:: Coronary Artery Disease, Hyperlipidemia, Hypertension, Myocardial Infarction Denies:: Cancer, Diabetes Mellitus Type 1, Diabetes Mellitus Type 2, Internal Pacemaker, MRSA, Seizures Other Medical History: Denies: Blood Transfusion Reaction Other Surgeries: Yes: No Previous Surgery, Appendectomy, CABG (08/2021), Cardiac Catheterization, Cardiac Surgery. No: Pacemaker Amputation: No
[2021-12-22 13:50] LABS: Strep Scrn Group A (Rapid) Negative (Negative)
[2021-12-22 13:53] LABS: UTC Influenza A Antigen Negative (Negative)
[2021-12-22 13:54] LABS: UTC Influenza B Antigen Negative (Negative)
[2021-12-22 14:12] LABS: Adenovirus,PCR Not Detected (NotDetected); Bordetella Pertussis Not Detected (NotDetected); Chlamydophila Pneumoniae, PCR Not Detected (NotDetected); Coronavirus 229E Not Detected (NotDetected); Coronavirus NL63 Not Detected (NotDetected); Coronavirus OC43 Not Detected (NotDetected); Coronovirus HKU1,PCR Not Detected (NotDetected); Human Metapneumovirus Not Detected (NotDetected); Influenza A, PCR Not Detected (NotDetected); Influenza AH1, 2009 Not Detected (NotDetected); Influenza AH1, PCR Not Detected (NotDetected); Influenza AH3,PCR Not Detected (NotDetected); Influenza B, PCR Not Detected (NotDetected); Mycoplasma Pneumoniae, PCR Not Detected (NotDetected); Parainfluenza 1, PCR Not Detected (NotDetected); Parainfluenza 2, PCR Not Detected (NotDetected); Parainfluenza 3, PCR Not Detected (NotDetected); Parainfluenza 4, PCR Not Detected (NotDetected); Respiratory Syncytial Virus Not Detected (NotDetected); Rhinovirus/Enterovirus Not Detected (NotDetected)
[2021-12-22 14:15] VITALS: BP 152/99; PULSE 79; RESP 17; TEMP 37.1
[2021-12-22 18:17] LABS: Coronavirus 19, PCR Detected (NotDetected)
== END 2021-12-22 14:28 | disposition home or self-care (01) ==
PROVIDERS: Emergency Provider Nurse Practitioner Family; PCP Family Medicine
DX: U07.1 COVID-19 (principal); I10 Essential (primary) hypertension; I25.10 Atherosclerotic heart disease of native coronary artery without angina pectoris; E78.5 Hyperlipidemia, unspecified; I25.2 Old myocardial infarction; Z79.82 Long term (current) use of aspirin; Z82.49 Family history of ischemic heart disease and other diseases of the circulatory system; Z84.1 Family history of disorders of kidney and ureter; Z83.438 Family history of other disorder of lipoprotein metabolism and other lipidemia; Z83.49 Family history of other endocrine, nutritional and metabolic diseases; Z80.9 Family history of malignant neoplasm, unspecified
CPT/HCPCS: 87430; 87581; 87632; 87798; 87804; 99213; C9803; G0463; U0003; U0005

== ENCOUNTER → 2022-01-10 07:43 | Outpatient (CLI) | payer OTHER, SELFPAY ==
--- NOTE | 2022-01-10 07:44 | CA_ITS ---
FINAL REPORT CLINICAL HISTORY: HTN, s/p CABGx4 08/2021 FINDINGS: Aorta velocity: 70 cm/sec Right kidney: 11.0 cm. No evidence of hydronephrosis or mass. Right intrarenal RI: 0.57 Right renal artery velocity: 104 cm/sec. Right RAR (Renal artery-Aortic Ratio): 1.48 Left Kidney: 10.8 cm. No evidence of hydronephrosis or mass. Left intrarenal RI: 0.60 Left renal artery velocity: 136 cm/sec. Left RAR (Renal Artery-Aortic Ratio): 1.93 IMPRESSION: No evidence of significant renal artery stenosis. CT angiogram or postcontrast MR angiogram would be more sensitive for evaluation of possible renal artery stenosis. Reviewed, Interpreted and Dictated by Reno Ness III, MD Transcribed by Juan Miguel Roberto Authenticated and [facility]
== END ==
PROVIDERS: PCP Family Medicine; Visit Provider Nurse Practitioner Family
DX: I25.10 Atherosclerotic heart disease of native coronary artery without angina pectoris (principal); I10 Essential (primary) hypertension
CPT/HCPCS: 93306; 93976

== ENCOUNTER → 2022-01-24 08:47 | Outpatient (CLI) | payer OTHER, SELFPAY ==
[2022-01-24 09:11] LABS: Basophils # 0.1 K/mm3 (0-0.2); Basophils % 0.9 % (0.1-2.0); Eosinophils # 0.1 K/mm3 (0.0-0.4); Hematocrit 49.9 % (42.0-52.0); Hemoglobin 17.1 g/dL (14.1-18.0); Mean Corpuscular HGB Conc 34.2 g/dL (31.8-35.4); Mean Corpuscular Hemoglobin 30.2 pg (27.0-31.2); Mean Corpuscular Volume 88.2 fl (80-94); Mean Platelet Volume 7.4 fl (7.4-10.4); Monocytes # 0.6 K/mm3 (0.1-1.0); Monocytes % 6.4 % (1.7-9.3); Neutrophils % 68.7 % (37.0-80.0); Platelet Count 224 K/mm3 (142-424); Red Blood Count 5.66 M/mm3 (4.60-6.20); Red Cell Distribution Width 14.7 % (11.5-17.5); White Blood Count 8.7 K/mm3 (4.8-10.8)
[2022-01-24 09:50] LABS: Alanine Aminotransferase 41 U/L (12-78); Albumin Level 4.1 g/dl (3.5-5.0); Alkaline Phosphatase 85 U/L (38-126); Anion Gap 10.3 mEq/L (5-15); Aspartate Amino Transferase 40 U/L (17-59); Bilirubin,Indirect 0.9 mg/dL (0.0-0.9); Bilirubin,Total 0.9 mg/dl (0.2-1.3); Bilirubin,Unconjugated 1.3 mg/dL (0.0-1.1); Blood Urea Nitrogen 13 mg/dl (9-20); Calcium 9.5 mg/dl (8.4-10.2); Carbon Dioxide 32 mmol/L (22.0-30.0); Chloride 100 mmol/L (98-107); Chol/HDL Ratio 3.9 (1-3.5); Cholesterol 161 mg/dl (140-200); Estimated Glomerular Filt Rate 69 ml/min (>60); GFR (African American) 84 ML/MIN (>60); Glucose 120 mg/dl (74-100); HDL Cholesterol 41 mg/dl (40-60); Potassium 4.3 mmoL/L (3.5-5.1); Sodium 138 mmol/L (136-145); Total Protein,Serum 6.6 g/dl (6.3-8.2); Triglycerides 198 mg/dl (30-150); VLDL Cholesterol 40 mg/dL (0-40)
[2022-01-24 10:01] LABS: Direct LDL Cholesterol 79.73 mg/dL (100-129)
[2022-01-24 10:06] LABS: Free T4 (Free Thyroxine) 0.78 ng/dl (0.78-2.19)
[2022-01-24 10:20] LABS: Thyroid Stimulating Hormone 2.47 uIU/mL (0.465-4.68)
== END ==
PROVIDERS: PCP Family Medicine; Visit Provider Nurse Practitioner Family
DX: I25.10 Atherosclerotic heart disease of native coronary artery without angina pectoris (principal); E78.2 Mixed hyperlipidemia; I10 Essential (primary) hypertension
CPT/HCPCS: 36415; 80048; 80061; 80076; 84439; 84443; 85025

== ENCOUNTER 2022-04-10 11:09 | Emergency (ER) | payer OTHER, SELFPAY ==
--- NOTE | 2022-04-10 12:14 | EXP.UTC ---
Discharge Plan Disposition Patient Disposition: Home, Self-Care Condition: Good Prescriptions Prescriptions: New benzonatate [benzonatate] 100 mg capsule 100 mg PO TIDP PRN (Reason: Cough) Qty: 30 0RF cefdinir 300 mg capsule 300 mg PO BID Qty: 20 0RF No Action hydrochlorothiazide 25 mg tablet 25 mg PO QDAY Qty: 90 3RF losartan 100 mg tablet See Rx Instructions .ROUTE .COMPLEX Qty: 30 3RF Dose Instruction: TAKE ONE TABLET BY MOUTH EVERY DAY Rx Instructions: TAKE ONE TABLET BY MOUTH EVERY DAY metoprolol tartrate 25 mg tablet See Rx Instructions .ROUTE .COMPLEX Qty: 180 0RF Dose Instruction: TAKE ONE TABLET BY MOUTH TWICE DAILY Rx Instructions: TAKE ONE TABLET BY MOUTH TWICE DAILY atorvastatin 80 mg tablet See Rx Instructions .ROUTE .COMPLEX Qty: 90 0RF Dose Instruction: TAKE ONE TABLET BY MOUTH EVERY DAY AT BEDTIME Rx Instructions: TAKE ONE TABLET BY MOUTH EVERY DAY AT BEDTIME aspirin 81 MG tablet,delayed release (DR/EC) 81 mg PO DAILY Referrals Follow up/Referrals: Ayad Almonte MD [Primary Care Provider] - See instructions Activity Restrictions/Add. Instructions Additional Instructions/Restrictions: Drink plenty of fluids. Take tylenol or ibuprofen for pain or fever. Take the medications as directed. Follow up with your regular doctor. GO TO THE ER FOR ANY WORSENING SYMPTOMS Throw your tooth brush away and get a new one. Quarantine until you know the results of your covid-19 test. Notify your school or workplace of your results and follow their instructions regarding return to work/school. Clinical Impressions Clinical Impression: Sinusitis Instructions Patient Instructions: Sinusitis, DI for Sinusitis Discharge ED Provider: Kevin Mathew [facility] General Stated complaint: body aches, cough, congestion Time Seen by Provider: 04/10/22 12:14 History of Present Illness Provider Complaint: He c/o sinus congestion, blood tinged sinus drainage, sinus pressure and a nonproductive cough for the past 4 days. He denies that this is covid-19. He states that he has had covid 4 times and this is a sinus infection this time. Related Data Home Medications Medication Instructions Recorded Confirmed aspirin 81 mg tablet,delayed 81 mg PO DAILY Blood thinner 11/21/21 03/27/22 release Previous Rx's Medication Instructions Recorded hydrochlorothiazide 25 mg tablet 25 mg PO QDAY #90 tabs 01/01/22 losartan 100 mg tablet See Rx Instructions .Route 02/06/22 .COMPLEX #30 tabs atorvastatin 80 mg tablet See Rx Instructions .Route 03/14/22 .COMPLEX #90 tabs metoprolol tartrate 25 mg tablet See Rx Instructions .Route 03/14/22 .COMPLEX #180 tabs benzonatate 100 mg capsule 100 mg PO TIDP PRN Cough #30 caps 04/10/22 cefdinir 300 mg capsule 300 mg PO BID #20 caps 04/10/22 Allergies Allergy/AdvReac Type Severity Reaction Status Date / Time No Known Allergies Allergy Verified 03/27/22 14:09 [facility] Medical History FH: CABG (coronary artery bypass surgery) Social History Smoking Status: Never smoker second hand exposure: No alcohol intake: current substance use type: denies use current occupational status: employed Travel in the last 8 weeks: None household members: spouse housing: house caffeine: Yes ROS Obtained: Yes All systems reviewed & no additional complaints except as documented Constitutional Constitutional: Reports chills and Reports fever(s) Eyes Eyes: Denies eye discharge ENT Ears, Nose, Mouth, and Throat: Reports as per HPI Cardiovascular Cardiovascular: Denies chest pain Respiratory Respiratory: Denies chest congestion and Reports cough Gastrointestinal Gastrointestingal: Reports nausea; Denies abdominal pain, constipation, cramping, diarrhea or vomiting Mus
[2022-04-10 12:27] VITALS: BP 116/82; PULSE 111; RESP 14; TEMP 38.4; O2SAT 96; BMI 28.7
[2022-04-10 12:30] LABS: UTC Strep Screen (Rapid) Negative (Negative)
[2022-04-10 13:06] VITALS: BP 116/82; PULSE 111; RESP 14; TEMP 37.9
== END 2022-04-10 13:12 | disposition home or self-care (01) ==
PROVIDERS: Emergency Provider Nurse Practitioner Family; PCP Family Medicine
DX: J32.9 Chronic sinusitis, unspecified (principal)
CPT/HCPCS: 87880; 96372; 99212; C9803; G0463; J0696; U0003; U0005

== ENCOUNTER → 2023-06-18 09:49 | Outpatient (CLI) | payer OTHER, SELFPAY ==
[2023-06-18 10:20] VITALS: PULSE 67; PULSE 72
--- NOTE | 2023-06-18 10:48 | XR_ITS ---
FINAL REPORT CLINICAL HISTORY: BRONCHITIS FINDINGS: TWO-VIEW CHEST The heart size is normal. The patient is status post median sternotomy. Coronary ostial markers are identified. The lungs are clear. There is no pneumothorax. IMPRESSION: No acute cardiopulmonary process. Reviewed, Interpreted and Dictated by Db Pan MD Transcribed by Thelma Loco Authenticated and [facility]
== END ==
PROVIDERS: PCP Family Medicine; Visit Provider Chiropractor
DX: J44.0 Chronic obstructive pulmonary disease with (acute) lower respiratory infection (principal); J40 Bronchitis, not specified as acute or chronic
CPT/HCPCS: 71046; 94060; 94640

== ENCOUNTER → 2023-07-04 13:33 | Outpatient (CLI) | payer OTHER, SELFPAY ==
[2023-07-04 14:21] LABS: Basophils # 0.1 K/mm3 (0-0.2); Basophils % 0.9 % (0.1-2.0); Eosinophils # 0.1 K/mm3 (0.0-0.4); Eosinophils % 1.1 % (0.1-12.0); Hematocrit 47.4 % (42.0-52.0); Hemoglobin 16.9 g/dL (14.1-18.0); Lymphocytes # 1.9 K/mm3 (0.7-4.5); Mean Corpuscular HGB Conc 35.7 g/dL (31.8-35.4); Mean Corpuscular Volume 89.7 fl (80-94); Mean Platelet Volume 7.7 fl (7.4-10.4); Monocytes # 0.6 K/mm3 (0.1-1.0); Monocytes % 9.2 % (1.7-9.3); Neutrophils # 4.2 K/mm3 (1.8-7.8); Neutrophils % 60.9 % (37.0-80.0); Platelet Count 264 K/mm3 (142-424); Red Blood Count 5.28 M/mm3 (4.60-6.20); Red Cell Distribution Width 13.3 % (11.5-17.5); White Blood Count 6.9 K/mm3 (4.8-10.8)
[2023-07-04 14:55] LABS: Alanine Aminotransferase 52 U/L (12-78); Albumin Level 4.6 g/dl (3.5-5.0); Alkaline Phosphatase 91 U/L (38-126); Anion Gap 9.2 mEq/L (5-15); Aspartate Amino Transferase 41 U/L (17-59); Bilirubin,Indirect 0.6 mg/dL (0.0-0.9); Bilirubin,Total 0.6 mg/dl (0.2-1.3); Bilirubin,Unconjugated 0.6 mg/dL (0.0-1.1); Blood Urea Nitrogen 13 mg/dl (9-20); Calcium 9.2 mg/dl (8.4-10.2); Carbon Dioxide 32 mmol/L (22.0-30.0); Chloride 100 mmol/L (98-107); Chol/HDL Ratio 3.8 (1-3.5); Cholesterol 136 mg/dl (140-200); Estimated Glomerular Filt Rate 62 ml/min (>60); GFR (African American) 76 ML/MIN (>60); Glucose 129 mg/dl (74-100); HDL Cholesterol 36 mg/dl (40-60); Magnesium 2.1 mg/dl (1.6-2.3); Potassium 4.2 mmoL/L (3.5-5.1); Sodium 137 mmol/L (136-145); Total Protein,Serum 6.7 g/dl (6.3-8.2); Triglycerides 160 mg/dl (30-150); VLDL Cholesterol 32 mg/dL (0-40)
[2023-07-04 15:14] LABS: Free T4 (Free Thyroxine) 0.83 ng/dl (0.78-2.19)
[2023-07-04 15:26] LABS: Thyroid Stimulating Hormone 2.18 uIU/mL (0.465-4.68)
== END ==
PROVIDERS: Visit Provider Internal Medicine
DX: E78.01 Familial hypercholesterolemia (principal); E78.2 Mixed hyperlipidemia; I11.9 Hypertensive heart disease without heart failure; I25.10 Atherosclerotic heart disease of native coronary artery without angina pectoris; Z95.1 Presence of aortocoronary bypass graft
CPT/HCPCS: 36415; 80048; 80061; 80076; 83735; 84439; 84443; 85025

== ENCOUNTER 2023-10-11 09:40 | Outpatient (CLI) | payer OTHER, SELFPAY ==
--- NOTE | 2023-10-11 09:44 | CA_ITS ---
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 62.0 (40-130 cm/s) MV A Velocity 75.0 (40-130 cm/s) E/A Ratio 0.83 MV PHT 44.0 ms Left Ventricle The left ventricle is normal size. The left ventricular systolic function is normal. The left ventricular ejection fraction is within the normal range. There is increased LV wall thickness. There is normal LV segmental wall motion. The left ventricular diastolic function is normal. LVEF is 55%. Right Ventricle Right ventricle is mildly dilated. The right ventricular systolic function is normal. Atria The left atrium size is normal. The right atrium size is normal. There is no Doppler evidence of interatrial shunt. Aortic Valve The aortic valve opens well. There is no aortic valvular stenosis. No aortic regurgitation is present. Mitral Valve The mitral valve is normal in structure. No evidence of mitral valve stenosis. There is no mitral valve regurgitation noted. Tricuspid Valve The tricuspid valve leaflets are thin and pliable. Trace tricuspid regurgitation. There is insufficient TR jet to estimate RVSP. Pulmonic Valve The pulmonary valve is normal in structure. Trace pulmonic regurgitation. Great Vessels The aortic root is normal in size. The ascending aorta is normal in size. The IVC is not well visualized. Pericardium There is no pericardial effusion. Other Information Study Quality: Fair Conclusion Normal biventricular systolic function. No significant valvular stenosis or regurgitation. Electronically signed by : Sosa Beckett MD 10/15/2023 21:10:07
== END 2023-10-11 23:59 ==
LOC: RT 09:41
PROVIDERS: Visit Provider Chiropractor
DX: I25.9 Chronic ischemic heart disease, unspecified (principal)
CPT/HCPCS: 93306

== ENCOUNTER 2023-10-15 09:41 | Emergency (ER) | payer BC, SELFPAY ==
[2023-10-15 10:02] VITALS: BP 138/88; PULSE 94; RESP 18; TEMP 37.8; O2SAT 98; BMI 30.2
[2023-10-15 10:20] LABS: UTC Influenza A Antigen Negative (Negative); UTC Strep Screen (Rapid) Negative (Negative)
[2023-10-15 10:21] LABS: UTC Influenza B Antigen Negative (Negative)
--- NOTE | 2023-10-15 10:33 | EXP.UTC ---
Discharge Plan Disposition Patient Disposition: Home, Self-Care Condition: Good Prescriptions Prescriptions: New methylprednisolone [Medrol (Jw)] 4 mg tablets,dose pack See Rx Instructions .Route .COMPLEX 6 Days Qty: 21 0RF Rx Instructions: taper pack; amoxicillin-pot clavulanate 875-125 mg Tablet 1 tab PO Q12H Qty: 20 0RF guaifenesin [Mucinex] 600 mg tablet extended release 12hr 1,200 mg PO BID PRN (Reason: cough) Qty: 20 0RF No Action metoprolol tartrate 25 mg tablet See Rx Instructions .ROUTE .COMPLEX Qty: 180 3RF Dose Instruction: TAKE ONE TABLET BY MOUTH TWICE DAILY Rx Instructions: TAKE ONE TABLET BY MOUTH TWICE DAILY hydrochlorothiazide 25 mg tablet 25 mg PO QDAY Qty: 90 3RF atorvastatin 80 mg tablet See Rx Instructions .ROUTE .COMPLEX Qty: 90 3RF Dose Instruction: TAKE ONE TABLET BY MOUTH EVERY DAY AT BEDTIME Rx Instructions: TAKE ONE TABLET BY MOUTH EVERY DAY AT BEDTIME losartan 100 mg tablet See Rx Instructions .ROUTE .COMPLEX Qty: 90 3RF Dose Instruction: TAKE ONE TABLET BY MOUTH EVERY DAY Rx Instructions: TAKE ONE TABLET BY MOUTH EVERY DAY aspirin 81 MG tablet,delayed release (DR/EC) 81 mg PO DAILY Referrals Follow up/Referrals: Sanjay Carroll DO [Primary Care Provider] - See instructions Activity Restrictions/Add. Instructions Additional Instructions/Restrictions: *Monitor Temp, Over the counter Motrin or Tylenol as directed/as needed Tylenol every 4 hours and Motrin every 6 hours (as long as your family doctor has told you that you can take it) for fever or pain. and straight to ER if unable to lower temp less than 101.0 after medication given *Warm salt water gargles may help to soothe the throat *Throat Lozenges? *Warm fluids like tea with honey may help to soothe the throat? *Sleep elevated *Humidifier/Vaporizer Your throat swab was sent for culture. Those results are typically sent to your primary care. Be sure to follow up in 2-3 days with your family doctor/primary care physician if no improvement so they can review those result and treat if necessary. If you don?t have a primary care doctor, I recommend you get one but in the mean time, you will have to return to a walk in clinic Follow up IMMEDIATELY for new or worsening symptoms or no Noticeable improvement over the next 48-72 hours. 911 for difficulty breathing or swallowing Clinical Impressions Clinical Impression: Sinusitis Stand Alone Forms Stand Alone Forms: Work/School Release Instructions Patient Instructions: Sinusitis, DI for Sinusitis Discharge ED Provider: Maria Esther Wilkinson [facility] [place] HPI General Stated complaint: sore throat, fever, chills, HANNAH Mode of Arrival: Ambulatory Source of Information: Patient Limitations: No Limitations Time Seen by Provider: 10/15/23 10:35 Description of Symptoms (Recalled from Triage Doc. by RN): Pt's symptoms are sore throat, diarrhea, HANNAH, body aches, productive cough, and ear pain. HEENT Symptoms (Recalled from RN notes): Yes Resp Symptoms (Recalled from RN notes): No Skin Symptoms (Recalled from RN notes): No MS Symptoms (Recalled from RN notes): No Functional Status (Recalled from RN notes): n/a History of Present Illness Provider Complaint: Patient states that he hasnt felt well in several days States that he has been having sinus congestion and pressure, pain and pressure in ears, sore throat, headache, fever, and drainage in the back of throat so he came in today Related Data Home Medications Medication Instructions Recorded Confirmed aspirin 81 mg tablet,delayed 81 mg PO DAILY Blood thinner 11/21/21 10/15/23 release Previous Rx's Medication Instructions Recorded atorvastatin 80 mg tablet See Rx Instructions .Route 12/27/22 .COMPLEX #90 tabs hydrochlorothiazide 25 mg tablet 25 mg PO QDAY #90 tabs 12/27/22 metoprolol tartrate 25 mg tablet See Rx Instructions .Route 12/27/22 .COMPLEX #180 tabs losartan 100 mg tablet See Rx Instructions .Route 06/03/23 .COMPLEX #90 tabs amoxicillin 875 mg-potassium 1 tab PO Q12H #20 tabs 10/15/23 clavulanate 125 mg tablet guaifenesin 600 mg tablet, 1,200 mg (2 x 600 mg) PO BID PRN 10/15/23 extended release 12 hr (Mucinex) cough #20 tabs methylprednisolone 4 mg tablets in See Rx Instructions .Route 10/15/23 a dose pack (Medrol (Jw)) .COMPLEX 6 days #21 tabs Allergies Allergy/AdvReac Type Severity Reaction Status Date / Time No Known Allergies Allergy Verified 10/15/23 10:16 Worker's Comp Is this a Worker's Comp case?: No [facility] Disclaimer: The information contained in this section may have been updated after the patient was seen, as this information can be updated by other users. Medical History FH: CABG (coronary artery bypass surgery) Social History Smoking Status: Never smoker second hand exposure: No alcohol intake: current substance use type: denies use current occupational status: employed Travel in the last 8 weeks: None household members: spouse housing: house caffeine: Yes ROS Obtained: Yes All systems reviewed & no additional complaints except as documented and Yes Systems reviewed as appropriate & no additional complaints except as documented Constitutional Constitutional: Reports system reviewed and no additional complaints, except as documented, Reports as per HPI, Reports body ache, Reports fever(s) and Reports headache(s) ENT Ears, Nose, Mouth, and Throat: Reports system reviewed and no additional complaints, except as documented, Reports as per HPI, Reports otalgia, Reports headache(s), Reports sinus pain, Reports sinus pressure and Reports sore throat Cardiovascular Cardiovascular: Reports system reviewed and no additional complaints, except as documented and Reports as per HPI Respiratory Respiratory: Reports system reviewed and no additional complaints, except as documented, Reports as per HPI and Reports cough Gastrointestinal Gastrointestingal: Reports system reviewed and no additional complaints, except as documented and as per HPI Neurologic Neurologic: Reports headache(s) Physical Exam General General appearance: alert and in no apparent distress ENT ENT exam: Present mucous membranes moist Expanded ENT Exam TM/Canal exam: Bilateral TM: bulging Nose exam: Present sinus tenderness Throat exam: Present other (Pharyngeal erythema noted with PND) Respiratory Respiratory exam: Present normal lung sounds bilaterally; Absent respiratory distress or wheezes Cardiovascular Cardiovascular exam: Present regular rate, normal rhythm and normal heart sounds Neurological Exam Neurological exam: Present alert, oriented X3 and normal gait Medical Decision Making Jovanni Inquiry Pt receiving controlled substance: No Jovanni was queried for this patient: No Vital Signs: 10/15/23 10:02 Temperature 100.1 F H Temperature Source Oral Pulse Rate [Right Radial] 94 H Respiratory Rate 18 Blood Pressure [Right Arm] 138/88 Blood Pressure Mean [Right Arm] 104 Blood Pressure Source [Right Arm] Automatic Cuff Blood Pressure Position [Right Arm] Sitting 02 Sat by Pulse Oximetry 98 Oxygen Delivery Method Room Air Lab Data Lab results reviewed: Yes I reviewed the patient's lab results. Lab Results 10/15/23 10:03: Influenza Type A Ag Negative, Influenza Type B Ag Negative, Strep Scn Rapid Clinic Negative Orders (Tests/Meds): ORDERS Category Date Time Status Strep Screen Confirmation Stat Micro 10/15/23 10:03 Received Medical Decision Narrative: Patient states that he has taken augmentin and Medrol in the past without complications or reactions
[2023-10-15 10:45] VITALS: BP 138/88; PULSE 94; RESP 18; TEMP 37.8; O2SAT 98
== END 2023-10-15 10:45 | disposition home or self-care (01) ==
PROVIDERS: Emergency Provider Nurse Practitioner; PCP Internal Medicine
DX: J01.90 Acute sinusitis, unspecified (principal); R51.9 Headache, unspecified; R50.9 Fever, unspecified; R07.0 Pain in throat; R09.82 Postnasal drip; R09.81 Nasal congestion
CPT/HCPCS: 87804; 87880; 99212; 99214; G0463

== ENCOUNTER 2023-12-23 12:12 | Emergency (ER) | payer BC, SELFPAY ==
[2023-12-23 12:25] VITALS: BP 103/59; PULSE 66; RESP 20; TEMP 36.7; O2SAT 97; BMI 30.1
--- NOTE | 2023-12-23 12:40 | ED_ITS ---
Discharge Plan Disposition Patient Disposition: Home, Self-Care Condition: Good Prescriptions Prescriptions: No Action metoprolol tartrate 25 mg tablet See Rx Instructions .ROUTE .COMPLEX Qty: 180 3RF Dose Instruction: TAKE ONE TABLET BY MOUTH TWICE DAILY Rx Instructions: TAKE ONE TABLET BY MOUTH TWICE DAILY hydrochlorothiazide 25 mg tablet 25 mg PO QDAY Qty: 90 3RF atorvastatin 80 mg tablet See Rx Instructions .ROUTE .COMPLEX Qty: 90 3RF Dose Instruction: TAKE ONE TABLET BY MOUTH EVERY DAY AT BEDTIME Rx Instructions: TAKE ONE TABLET BY MOUTH EVERY DAY AT BEDTIME losartan 100 mg tablet See Rx Instructions .ROUTE .COMPLEX Qty: 90 3RF Dose Instruction: TAKE ONE TABLET BY MOUTH EVERY DAY Rx Instructions: TAKE ONE TABLET BY MOUTH EVERY DAY aspirin 81 MG tablet,delayed release (DR/EC) 81 mg PO DAILY methylprednisolone [Medrol (Jw)] 4 mg tablets,dose pack See Rx Instructions .Route .COMPLEX 6 Days Qty: 21 0RF Rx Instructions: taper pack; amoxicillin-pot clavulanate 875-125 mg Tablet 1 tab PO Q12H Qty: 20 0RF guaifenesin [Mucinex] 600 mg tablet extended release 12hr 1,200 mg PO BID PRN (Reason: cough) Qty: 20 0RF Referrals Follow up/Referrals: Provider,Referral, MD [Primary Care Provider] - See instructions Radha Andrea DPM [Staff Physician] - See instructions Activity Restrictions/Add. Instructions Additional Instructions/Restrictions: Follow up with Dr. Starr. Tylenol as needed for pain. Ice for 20 minutes at a time 3 times a day. Clinical Impressions Clinical Impression: Acute left ankle pain Instructions Patient Instructions: How To Perform RICE (Rest, Ice, Compress, Elevate), DI for Ankle Pain Discharge ED Provider: Aimee Fagan [facility] [place] HPI General Stated complaint: left ankle pain, bruising, swelling Time Seen by Provider: 12/23/23 12:38 History of Present Illness Provider Complaint: Pt reports that for the last 2 weeks he has had left ankle pain. He reports that upon awakening the pain is the worst and his ankle feels unstable when he first goes to stand. He reports that the ankle always hurts and makes him walk with a limp. Related Data Home Medications Medication Instructions Recorded Confirmed aspirin 81 mg tablet,delayed 81 mg PO DAILY Blood thinner 11/21/21 10/15/23 release Previous Rx's Medication Instructions Recorded atorvastatin 80 mg tablet See Rx Instructions .Route 12/27/22 .COMPLEX #90 tabs hydrochlorothiazide 25 mg tablet 25 mg PO QDAY #90 tabs 12/27/22 metoprolol tartrate 25 mg tablet See Rx Instructions .Route 12/27/22 .COMPLEX #180 tabs losartan 100 mg tablet See Rx Instructions .Route 06/03/23 .COMPLEX #90 tabs amoxicillin 875 mg-potassium 1 tab PO Q12H #20 tabs 10/15/23 clavulanate 125 mg tablet guaifenesin 600 mg tablet, 1,200 mg (2 x 600 mg) PO BID PRN 10/15/23 extended release 12 hr (Mucinex) cough #20 tabs methylprednisolone 4 mg tablets in See Rx Instructions .Route 10/15/23 a dose pack (Medrol (Jw)) .COMPLEX 6 days #21 tabs Allergies Allergy/AdvReac Type Severity Reaction Status Date / Time ibuprofen AdvReac Verified 12/23/23 14:02 [facility] Disclaimer: The information contained in this section may have been updated after the patient was seen, as this information can be updated by other users. Medical History FH: CABG (coronary artery bypass surgery) Social History Smoking Status: Never smoker second hand exposure: No alcohol intake: current alcohol intake frequency: holidays/special occasions only substance use type: denies use current occupational status: employed Travel in the last 8 weeks: None household members: spouse housing: house caffeine: Yes ROS Obtained: Yes All systems reviewed & no additional complaints except as documented Constitutional Constitutional: Reports system reviewed and no additional complaints, except as documented Eyes Eyes: Reports system reviewed and no additional complaints, except as documented ENT Ears, Nose, Mouth, and Throat: Reports system reviewed and no additional complaints, except as documented Cardiovascular Cardiovascular: Reports system reviewed and no additional complaints, except as documented Respiratory Respiratory: Reports system reviewed and no additional complaints, except as documented Gastrointestinal Gastrointestingal: Reports system reviewed and no additional complaints, except as documented Genitourinary Male Genitourinary: Reports system reviewed and no additional complaints, except as documented Musculoskeletal Musculoskeletal: Reports system reviewed and no additional complaints, except as documented, Reports abnormal gait, Reports joint swelling and Reports limited range of motion Integumentary/Breasts Skin/Breast: Reports system reviewed and no additional complaints, except as documented and Reports as per HPI Comments: brusing around left ankle Neurologic Neurologic: Reports system reviewed and no additional complaints, except as documented and Reports abnormal gait Endocrine Endocrine: Reports system reviewed and no additional complaints, except as documented Hematologic/Lymphatic Henatologic/Lymphatic: Reports system reviewed and no additional complaints, except as documented Allergic/Immunologic Allergic/Immunologic: Reports system reviewed and no additional complaints, except as documented Physical Exam General General appearance: alert and in no apparent distress Head Head exam: atraumatic and normocephalic Eye Eye exam: Present normal appearance ENT ENT exam: Present normal exam and normal oropharynx Neck Neck exam: Present normal inspection Chest Chest inspection: Present normal inspection and symmetric chest wall rise Respiratory Respiratory exam: Present normal lung sounds bilaterally Cardiovascular Cardiovascular exam: Present regular rate, normal rhythm and normal heart sounds Abdominal Exam Abdominal exam: Present soft and normal bowel sounds Expanded Lower Extremity Exam Left: Hip/Pelvis exam: Present normal inspection Upper leg exam: Present normal inspection Knee exam: Present normal inspection Lower leg exam: Present normal inspection Ankle exam: Present tenderness, swelling, ecchymosis and tenderness over talofibular lig Foot/toe exam: Present normal inspection Neurovascular/Tendon exam: Present normal capillary refill Gait: observed and limited by pain Back Exam Back exam: Present normal inspection Neurological Exam Neurological exam: Present alert and oriented X3 Psychiatric Psychiatric exam: Present normal affect and normal mood Skin Skin exam: Present warm, dry and intact Lymphatic Lymphatic Findings: no adenopathy Medical Decision Making Jovanni Inquiry Pt receiving controlled substance: No Jovanni was queried for this patient: No Radiology Data #1: Image(s): Elbow Image Reviewed: Yes I have reviewed radiologist's interpretation Preliminary Findings: Normal/NAD
--- NOTE | 2023-12-23 12:44 | XR_ITS ---
FINAL REPORT CLINICAL HISTORY: SWELLING, NO KNOWN INJURY FINDINGS: LEFT ANKLE Three views demonstrate no acute fracture or dislocation. There is a tiny chronic avulsion of the tip of the medial malleolus. There are minimal degenerative changes. The visualized joint spaces are normally aligned. The soft tissues are unremarkable. IMPRESSION: No acute bony abnormality. Reviewed, Interpreted and Dictated by Lakshmi Schafer MD Transcribed by Poppy Hunter Authenticated and [facility]
[2023-12-23 14:08] VITALS: BP 103/59; PULSE 66; RESP 20; TEMP 36.7; O2SAT 97
== END 2023-12-23 14:17 | disposition home or self-care (01) ==
PROVIDERS: Emergency Provider Nurse Practitioner Family
DX: M25.572 Pain in left ankle and joints of left foot (principal)
CPT/HCPCS: 73610; 99212; 99213; G0463

== ENCOUNTER 2024-01-06 14:53 | Outpatient (RCR) | payer BC, SELFPAY | END 2024-01-06 16:00 | disposition home or self-care (01) | LOC: PT 14:53 | PROVIDERS: Visit Provider Physician Assistant | DX: M25.372 Other instability, left ankle (principal) | CPT/HCPCS: 97760 ==

== ENCOUNTER 2024-02-04 13:23 | Outpatient (CLI) | payer BC, SELFPAY ==
--- NOTE | 2024-02-04 13:24 | MR_ITS ---
FINAL REPORT CLINICAL HISTORY: Lt ankle instability swelling and lateral ankle pain COMPARISON: None FINDINGS: Multiplanar MR imaging of the left ankle was performed without contrast. The bony structures are intact without evidence of fracture, bone bruise or marrow edema. No osteochondral lesion is identified. The ligaments are intact without evidence of injury. The flexor and extensor tendons are intact. The posterior plantar aponeurosis is intact. A small joint effusion is seen. The musculature is intact. There is no evidence of soft tissue mass or cyst. IMPRESSION: Small joint effusion. Reviewed, Interpreted and Dictated by Db Pan MD Transcribed by Jordyn Cortez Authenticated and [facility]
== END 2024-02-04 23:59 | disposition home or self-care (01) ==
LOC: RAD 13:24
PROVIDERS: Visit Provider Orthopaedic Surgery
DX: M25.372 Other instability, left ankle (principal)
CPT/HCPCS: 73721

== ENCOUNTER 2025-05-04 11:26 | Outpatient (CLI) | payer BC, SELFPAY ==
[2025-05-04 14:24] LABS: Influenza A, PCR Not Detected (NotDetected); Influenza B, PCR Not Detected (NotDetected)
[2025-05-04 15:19] LABS: Coronavirus 19, PCR Detected (NotDetected)
--- OUTSIDE RECORDS SUMMARY | 2025-05-05 12:52 | XMS_ITS | Clinical Summary ---
Author Organization Healthcare Address [address] [place] [address] Care Team Providers Care Correctional Counselor/Case Manager Name Role Phone Ayad Almonte MD Primary Care Provider [phone] Duong Prince MD Unavailable [phone] Allergies No known active allergies Medications aspirin 81 MG chewable tablet Chew 81 mg 1 (one) time each day. Active amiodarone (Pacerone) 200 MG tablet Take 1 tablet (200 mg total) by mouth 1 (one) time each day. 30 tablet 2 09/04/2021 Active atorvastatin (Lipitor) 80 MG tablet Take 1 tablet (80 mg total) by mouth every night. 30 tablet 2 08/29/2021 Active methocarbamol (Robaxin) 750 MG tablet Take 1 tablet (750 mg total) by mouth 4 (four) times a day for 10 days. 40 tablet 08/29/2021 Active metoprolol tartrate (Lopressor) 25 MG tablet Take 1 tablet (25 mg total) by mouth 2 (two) times a day. 60 tablet 2 08/29/2021 Active furosemide (Lasix) 40 MG tablet Take 1 tablet (40 mg total) by mouth 1 (one) time each day for 5 days. 5 tablet 08/30/2021 Active Active Problems Problem Noted Date Diagnosed Date Hypertension 08/19/2021 Coronary artery disease 08/19/2021 Hyperlipidemia 08/19/2021 Resolved Problems Problem Noted Date Diagnosed Date Resolved Date Overweight (BMI 25.0-29.9) 09/13/2021 0 03/28/2025 Hyperkalemia 08/26/2021 08/28/2021 Overview (08/27/2021): K 5.7 Insulin/dextrose given 08/26 Improving Volume overload 08/25/2021 08/29/2021 Overview (08/25/2021): Serial cxrs Diurese prn Respiratory insufficiency 08/25/2021 Overview (08/28/2021): Expected postop Wean oxygen as tolerated Thrombocytopenia 08/25/2021 08/29/2021 Overview (08/25/2021): Expected Monitor Leukocytosis 08/25/2021 08/29/2021 Overview (08/25/2021): Expected Monitor Urethral stricture 08/25/2021 Overview (08/25/2021): Required urethral dilation to place walsh in OR Walsh will need to stay in at least 3 days until 08/28 NSTEMI (non-ST elevated myoc ardial infarction) 08/19/2021 09/13/2021 Immunizations Immunization Administration Dates Next Due Anthrax 02/26/2004, 4,08/21/2002,08/08,08/28/1999,08/21/1999 Hep A, Adult 07/17/2003,01/24/2003,01/23/2003 Hep B, adult 09/13/2006 IPV 10/31/2002 Influenza, Split (incl. candy fied surface antigen) 06/09/2006,06/09/2005,05/22/2003 Influenza, Unspecified 04/07/2016,2014,05/24/2014,05/08,07/13/2011 MMR 10/31/2002 Meningococcal MPSV4 09/13/2006 TD (adult), 2 Lf tetanus tox oid, preservative free, adsorbed 01/24/2003,01/23/2003 Td (adult), unspecified 12/06/2009 Tdap 07/08/2006 Typhoid, ViCPs 09/13/2006 Yellow Fever 10/31/2002 Social History Tobacco Use Types Packs/Day Years Used Date Smoking Tobacco: Never Smokeless Tobacco: Current Snuff Sex and Gender Information Value Date Recorded Sex Assigned at Not on file Legal Sex Male 9:55 PM EST Gender Identity Not on file Sexual Orientation Not on file Last Filed Vital Signs Vital Sign Reading Time Taken Comments Blood Pressure 109/74 09/21/2021 12:16 PM EDT Pulse 69 09/21/2021 12:16 PM EDT Temperature 37.1 C (98.7 F) 08/29/2021 11:40 AM EST Respiratory Rate 20 08/29/2021 11:40 AM EST Oxygen Saturation 99% 09/21/2021 12:16 PM EDT Inhaled Oxygen Concentration - - Weight 96.6 kg (213 lb) 09/21/2021 12:16 PM EDT Height 185.4 cm (6' 1 ) 09/21/2021 12:16 PM EDT Body Mass Index 28.1 09/21/2021 12:16 PM EDT Plan of Treatment Health Maintenance Due Date Last Done Comments [facility]-Depression Screening 1966 [facility]-Infant/Child/Adol SDOH Screenings 1966 [facility]- SDOH Screenings 1984 [facility]-Adult SDOH Screenings 1984 [facility]-IPV Vaccines (2 of 3 - Adult catch-up series) 11/28/2002 10/31/2002 [facility]-Hepatitis B Vaccines (2 of 3 - 19+ 3-dose series) 10/11/2006 09/13/2006 CT Colonography 2011 Colonoscopy 2011 FIT-DNA 2011 FIT 2011 FOBT 2011 Sigmoidoscopy 2011 [facility]-Colorectal Cancer Screening 2011 [facility]-Pneumococcal Vaccine: 50+ Years (1 of 1 - PCV) 2016 [facility]-Zoster Vaccines (1 of 2) 2016 [facility]-DTaP,Tdap,and Td Vaccines (3 - Td or Tdap) 12/07/2019 12/06/2009, 07/08/2006, 01/24/2003, Additional history exists [id number] Vaccine (1 - season) 2025 [facility]-Influenza Vaccine (#1) 03/08/202504/07, 04/07/2015, 05/24/2014, Additional history exists [facility]-Hepatitis A Vaccines Aged Out 004, 01/24/2003, 01/23/2003 No longer eligible based on patient's age to complete this topic HPV Vaccines Aged Out No longer eligi ble based on patient's age to complete this topic [facility]-HIB Vaccines Aged Out No longer e ligible based on patient's age to complete this topic [facility]-Rotavirus Vaccines Aged Out No lo nger eligible based on patient's age to complete this topic Insurance [facility] Advance Directives * Full Code (Latest Code Status on File) Date Activated Date Inactivated Comments 08/25/2021 4:17 PM 08/29/2021 5:46 PM Question Answer Comments Patient has decision-making capacity? Yes * Full Code Date Activated Date Inactivated Comments 08/19/2021 10:09 AM 08/25/2021 4:17 PM Question Answer Comments Patient has decision-making capacity? Yes Care Teams Correctional Counselor/Case Manager Relationship Specialty Start Date End Date Ayad Almonte MD PCP - General 08/08/21 Duong Prince MD [address] [place] [address] Referring Physician 08/29/21
--- OUTSIDE RECORDS SUMMARY | 2025-05-05 12:52 | XMS_ITS | Clinical Summary ---
Author Organization [facility] Address [address] [place] [address] Phone Care Team Providers Care Customer Acquisition Specialist Name Role Phone Jake Haney MD Unavailable [phone] Medications amLODIPine (NORVASC) 10 mg Oral TabletIndications :Essential hypertension Take 1 Tab by mouth daily. 90 Tab 1 7 Active lisinopril-hydroc hlorothiazide (PRINZIDE;ZESTORE TIC) 20-25 mg Oral TabletIndications :Essential hypertension Take 1 Tab by mouth daily. 90 Tab 3 7 Active tiZANidine (ZANAFLEX) 4 mg Oral TabletIndications :Chronic midline posterior neck pain Take 1 Tab by mouth nightly as needed for Muscle spasms. 30 Tab 3 7 Active Active Problems Problem Noted Date Diagnosed Date Obstructive sleep apnea (adult) (pediatric) 10/2013 HTN (hypertension) 12/16/2012 Surgical History Surgery Date Site/Laterality Comments KNEE ARTHROSCOPY Family History Medical History Relation Name Comments Cancer Father Relation Name Status Comments Father Mother Alive Social History Tobacco Use Types Packs/Day Years Used Date Smoking Tobacco: Never Smokeless Tobacco: Never Alcohol Use Standard Drinks/Week Comments No 0 (1 standard drink = 0.6 oz pur e alcohol) Sex and Gender Information Value Date Recorded Sex Assigned at Not on file Legal Sex Male 8:49 PM EDT Gender Identity Not on file Sexual Orientation Not on file Last Filed Vital Signs Vital Sign Reading Time Taken Comments Blood Pressure 166/104 03/29/2017 9:48 AM EDT Pulse 80 06/08/2014 11:54 AM EST Temperature 36.4 C (97.5 F) 03/29/2017 9:48 AM EDT Respiratory Rate 16 01/02/2013 3:01 PM EDT Oxygen Saturation - - Inhaled Oxygen Concentration - - Weight 105.2 kg (232 lb) 03/29/2017 9:48 AM EDT Height 185.4 cm (6' 1 ) 03/29/2017 9:48 AM EDT Body Mass Index 30.61 03/29/2017 9:48 AM EDT Plan of Treatment Health Maintenance Due Date Last Done Comments DTaP/TDaP/Td (1 - Tdap) 1985 Hepatitis B Vaccine (1 of 3 - 19+ 3-dose series) 1985 Cologuard 2011 Colon Cancer Screening 2011 Colonoscopy 2011 FIT 2011 Sigmoidoscopy 2011 Virtual Colonography 2011 Pneumococcal Vaccine 50+ (1 of 1 - PCV) 2016 Zoster (1 of 2) 2016 Annual Wellness Exam 02/09/2018 02/09/2017 COVID-19 Vaccine (1 - 2024-2 6 season) 2025 Influenza Vaccine (#1) 2025 6 (Declined), 05/08/2015, 09/18/2014 (Declined) Meningococcal B Vaccine Aged Out No l onger eligible based on patient's age to complete this topic Goals Goal Patient Goal Type Associated Problems Recent Progress Patient-Stated? Author Blood Pressure < 140/90 Blood Pressure 166/104(03/29 9:48 AM EDT) Aimee Prabhakar RMA Maintain a healthy diet, exercise regularly and maintain an ideal body weight General No Nicolle Sibley RMA Insurance [employer] [place] [address] [facility] PPO [facility] [address] [facility] PPO Care Teams Customer Acquisition Specialist Relationship Specialty Start Date End Date Jake Haney MD [address] [facility] [place] [address] (work) Internal Medicine-Cardiovascular Disease 05/25/14
== END 2025-05-04 23:59 | disposition home or self-care (01) ==
LOC: LAB.DROPOF 05-05 12:48
PROVIDERS: PCP Family Medicine; Visit Provider Family Medicine
DX: R50.9 Fever, unspecified (principal); R52 Pain, unspecified; R53.1 Weakness
CPT/HCPCS: 87636